=== PATIENT | female | born 1975 | race African-American/Black ===

== ENCOUNTER 2023-09-11 03:28 | Emergency (ER) | payer SELFPAY ==
[~2023-09-11] VITALS: Ht 165.1 cm; Wt 68.0 kg
[2023-09-11 04:15] LABS: STREPTOCOCCUS GRP A ANTIGEN NEGATIVE (NEGATIVE)
[2023-09-11 04:24] LABS: INFLUENZAE A&B ANTIGEN (RAPID) POSITIVE FLU A (NEGATIVE)
[2023-09-11] MEDS ORDERED: TAMIFLU75 MG PO (04:27)
[2023-09-11 04:29] LABS: BASOPHILS % 0.3 % (0.0-1.0); EOSINOPHILS # (AUTO) 0.1 (0.0-0.4); EOSINOPHILS % 1.3 % (0.0-6.0); HEMATOCRIT 35.6 % (34.2-44.1); HEMOGLOBIN 12.4 g/dL (12.0-16.0); LYMPHOCYTES # (AUTO) 0.8 (1.0-3.2); LYMPHOCYTES % 13.1 % (18.0-39.1); MEAN CORPUSCULAR HEMOGLOBIN 31.2 pg (28-32); MEAN CORPUSCULAR HGB CONC 34.8 g/dL (31-35); MEAN CORPUSCULAR VOLUME 89.4 fL (81-99); MONOCYTES # (AUTO) 0.8 (0.2-0.8); NEUTROPHILS # (AUTO) 4.6 (2.1-6.9); NEUTROPHILS % 73.1 % (38.7-80.0); PLATELET COUNT 240 x10e3/uL (140-360); RED BLOOD COUNT 3.98 x10e6/uL (3.6-5.1); RED CELL DISTRIBUTION WIDTH 13.9 % (11.7-14.4); WHITE BLOOD COUNT 6.34 x10e3/uL (4.8-10.8)
[2023-09-11 04:31] LABS: RESPIRATORY SYNC. VIRUS NEGATIVE (NEGATIVE)
[2023-09-11] MEDS ORDERED: VENTOLIN HFA18 GM INH (05:40)
[2023-09-11 06:36] VITALS: BP 110/76; PULSE 97; RESP 16; TEMP 98.5; O2SAT 100
== END 2023-09-11 06:50 | disposition home or self-care (01) ==
LOC: ER 03:35
DX: O03.9 Complete or unspecified spontaneous abortion without complication (principal); D25.9 Leiomyoma of uterus, unspecified; J10.1 Influenza due to other identified influenza virus with other respiratory manifestations; Z11.52 Encounter for screening for COVID-19
CPT/HCPCS: 36415; 76830; 81025; 83518; 84702; 85025; 87070; 87400; 87420; 99284; U0002